=== PATIENT | female | born 1965 | race Caucasian/White ===

== ENCOUNTER 2019-11-01 14:50 | Emergency (ER) | payer SELFPAY ==
[~2019-11-01] VITALS: Ht 170.1 cm; Wt 61.2 kg
[~2019-11-01 14:50] MED LIST: FLEXERIL5 MG PO; NKHM; PREDNISONE20 MG PO; TRAMADOL HCL50 MG PO
== END 2019-11-01 16:33 | disposition home or self-care (01) ==
LOC: ED 14:50
DX: S52.122A Displaced fracture of head of left radius, initial encounter for closed fracture (principal); Z87.891 Personal history of nicotine dependence; W18.09XA Striking against other object with subsequent fall, initial encounter; Y93.89 Activity, other specified; Y92.89 Other specified places as the place of occurrence of the external cause; Y99.8 Other external cause status

== ENCOUNTER 2020-10-22 10:30 | Emergency (ER) | payer SELFPAY ==
[2020-10-22 11:17] LABS: BASO % 0.4 % (0.0-1.0); EOS % 0.4 % (1.0-4.0); HEMATOCRIT 42.4 % (37.0-47.0); LYMPH # 1.7 10*3/uL (1.3-4.4); LYMPH % 16.1 % (27.0-41.0); MEAN CELL VOLUME 87.6 fl (81.0-99.0); MEAN CORPUSCULAR HGB 28.3 pg (27.0-31.0); MEAN CORPUSCULAR HGB CONC 32.3 g/dl (33.0-37.0); MEAN PLATELET VOLUME 10.1 fl (9.6-12.3); MONO # 0.9 10*3/uL (0.1-1.0); MONO % 8.3 % (3.0-9.0); NEUT % 74.5 % (47.0-73.0); PLATELET COUNT AUTOMATED 278 10*3/uL (130-400); RED BLOOD COUNT 4.84 10*6/uL (4.10-5.10); WHITE BLOOD COUNT 10.7 10*3/uL (4.8-10.8)
[2020-10-22 11:32] LABS: ALBUMIN 3.8 gm/dl (3.1-4.5); ALKALINE PHOSPHATASE 72 U/L (45-117); BUN 12 mg/dl (7-24); CHLORIDE 104 mmol/L (98-107); CREATININE 0.84 mg/dL (0.55-1.02); LIPASE 184 U/L (73-393); POTASSIUM 4.2 mmol/L (3.5-5.1); SGOT/AST 12 IU/L (3-35); SGPT/ALT 17 U/L (12-78); SODIUM 138 mmol/L (136-145); TOTAL PROTEIN 7.7 gm/dL (6.4-8.2)
[2020-10-22 11:36] LABS: INTERNATIONAL NORM RATIO 0.9 (2.0-3.5); TROPONIN I < 0.015 ng/ml (<0.045)
[2020-10-22] MEDS ORDERED: MEDROL DOSEPAK4 MG PO (12:09)
== END 2020-10-22 12:23 | disposition home or self-care (01) ==
LOC: ED 10:30
PROVIDERS: Physician Assistant
DX: M79.622 Pain in left upper arm (principal)

== ENCOUNTER 2025-02-26 16:34 | Emergency (ER) | payer SELFPAY ==
[~2025-02-26] VITALS: Ht 167.6 cm; Wt 63.5 kg
[~2025-02-26 16:34] MED LIST changes: +MEDROL DOSEPAK4 MG PO
[2025-02-26] MEDS ORDERED: Acetaminophen/Oxycodone 5 MG/325 MG TABLET PO ONE (16:55)
[2025-02-26] MEDS ORDERED: PERCOCET 5-3251 EACH PO (17:35)
== END 2025-02-26 17:53 | disposition home or self-care (01) ==
LOC: ED 16:34
DX: S52.122A Displaced fracture of head of left radius, initial encounter for closed fracture (principal); S63.501A Unspecified sprain of right wrist, initial encounter; W18.09XA Striking against other object with subsequent fall, initial encounter; Y93.89 Activity, other specified; Y92.480 Sidewalk as the place of occurrence of the external cause; Y99.8 Other external cause status